=== PATIENT | female | born 1930 | race Caucasian/White ===

== ENCOUNTER 2016-10-25 15:55 | Emergency (ER) | payer MEDICARE, BC ==
--- NOTE | 2016-11-01 13:38 | ER ---
ADMIT: 10/25/2016 RM/LOC: ER [facility] MR#: [id number] [id number] [id number] [place] [address] Emergency Room Report SEX: F AGE: 86 : 1930 DATE: 10/25/2016 This patient is brought into the ER because she is concerned about rectal bleeding today. On 2 occasions, she had stool that was bright red. In the emergency room, on physical exam, she has quite a bit of irritation in her rectum area. I do not see any obvious bleeding in her rectum but she does have a lot of mucus and diarrhea that is dried. Hemoccult was negative. Her white count was 10 but that is normally what she runs according to her daughter. She really has no abdominal pain. DIAGNOSIS: Diarrhea. I reassured her that when I did do the rectal exam, the diarrhea was bright orange but I did not see any blood and there was no blood on the Hemoccult and I did get a very good sample. We will have her push fluids. If she continues to have diarrhea, she should follow up with her primary. If she is bleeding bright red blood, they should come back to the ER. Please see my T-sheet. MIGUEL ANGEL Guzman / Horace Freeman MD / tray JOB #: [id number] CC: Horace Freeman MD, Attending Physician Yoel Carey MD, Family Physician
== END 2016-10-25 17:50 | disposition home or self-care (01) ==
LOC: ER 15:55
DX: R19.7 Diarrhea, unspecified (principal); Z98.890 Other specified postprocedural states; Z79.82 Long term (current) use of aspirin; Z79.899 Other long term (current) drug therapy